=== PATIENT | female | born 1950 | race Caucasian/White ===

== ENCOUNTER 2022-12-23 11:36 | Emergency (ER) | payer BC ==
[~2022-12-23] VITALS: Ht 149.9 cm; Wt 45.4 kg
[2022-12-23] MEDS ORDERED: FOLIC ACID20 MG (12:34)
[2022-12-23] MEDS ORDERED: INDOMETHACIN50 MG PO (12:34)
[2022-12-23] MEDS ORDERED: KETO10TA2 PO (15:57)
== END 2022-12-23 16:00 | disposition home or self-care (01) ==
LOC: ER 11:36
DX: S72.092A Other fracture of head and neck of left femur, initial encounter for closed fracture (principal); W18.39XA Other fall on same level, initial encounter; Y93.89 Activity, other specified; Y92.59 Other trade areas as the place of occurrence of the external cause; Y99.9 Unspecified external cause status